=== PATIENT | female | born 1950 | race Hispanic/Latino ===

== ENCOUNTER 2018-03-08 18:03 | Emergency (ER) | payer MEDICARE ==
[2018-03-08] MEDS ORDERED: ASPIRIN PO ONE (18:32)
[2018-03-08] MEDS ORDERED: WATER FOR INJ (PF) ONE (18:33)
[2018-03-08] MEDS ORDERED: GEODON IM ONE (18:33)
[2018-03-08] MEDS ORDERED: ATIVAN ONE (18:37)
[2018-03-08] MEDS ORDERED: HALDOL ONE (18:37)
[2018-03-08 20:14] LABS: Basophils # (Auto) 0.1 K/mm3 (0.0-0.1); Basophils % (Auto) 0.6 % (0.0-1.8); Eosinophils # (Auto) 0.1 K/mm3 (0.0-0.4); Hematocrit 41.4 % (30.3-42.9); Hemoglobin 13.8 gm/dl (10.1-14.3); Lymphocytes # (Auto) 2.3 K/mm3 (1.2-5.4); Lymphocytes % (Auto) 23.2 % (13.4-35.0); Mean Corpuscular HGB Conc 33 % (30-34); Mean Corpuscular Hemoglobin 30 pg (28-32); Mean Corpuscular Volume 90 fl (79-97); Monocytes # (Auto) 0.7 K/mm3 (0.0-0.8); Monocytes % (Auto) 6.7 % (0.0-7.3); Platelet Count 331 K/mm3 (140-440); Red Blood Count 4.61 M/mm3 (3.65-5.03); Red Cell Distribution Width 14.1 % (13.2-15.2)
[2018-03-08 21:09] LABS: BUN/Creatinine Ratio 22; Blood Urea Nitrogen 22 mg/dL (7-17); Calcium 9.5 mg/dL (8.4-10.2); Hemolysis Index 12
--- NOTE | 2018-03-09 01:35 | Emergency Department Report ---
ED Chest Pain HPI - General Chief Complaint: Chest Pain Stated Complaint: CHEST PAIN Time Seen by Provider: 03/09/18 01:23 Source: patient, family, RN notes reviewed Mode of arrival: Wheelchair Limitations: No Limitations - History of Present Illness Initial Comments: This is a 67-year-old female who is not known to this provider previously. She does not recall the name of her primary care doctor. She has a past history of diabetes and hypertension. She presents to the ER with resolved chest pain. The chest pain started yesterday. It started while she was mopping. The chest pain was epigastric and in the bilateral inferior thoracic regions. It may radiate to her back, she is not sure. She endorses shortness of breath but no nausea, vomiting or diaphoresis. Her symptoms are now resolved. The patient denies DVT, pulmonary embolus risk factors. She denies recent cocaine use. No recent cardiac risk stratification that she is aware of. MD Complaint: chest pain -: Sudden Onset: during exertion Pain Location: left chest, right chest, epigastric Pain Radiation: back Severity: moderate Quality: aching Consistency: now resolved Improves With: nothing Worsens With: nothing re: dyspnea. denies: nausea, vomting, diaphoresis, sense of impending doom Treatments Prior to Arrival: aspirin Aspirin use within the Past 7 Days: (0) No - Related Data On Oral Contraceptives: No Allergies Allergy/AdvReac Type Severity Reaction Status Date / Time Sulfa (Sulfonamide Allergy Rash Verified 03/08/18 18:31 Antibiotics) Heart Score - HEART Score History: Moderately suspicious EKG: Non-specific Age: 45-65 Risk factors: 1-2 risk factors Troponin: < normal limit HEART Score: 4 - Critical Actions Critical Actions: 4-6 pts:12-16.6% risk of adverse cardiac event. Should be admitted ED Review of Systems ROS: Stated complaint: CHEST PAIN Other details as noted in HPI Comment: All other systems reviewed and negative ED Past Medical Hx - Past Medical History Hx Hypertension: Yes Hx Diabetes: Yes - Surgical History Past Surgical History?: No - Social History Smoking Status: Never Smoker Substance Use Type: None ED Physical Exam - General Limitations: No Limitations General appearance: alert, in no apparent distress - Head Head exam: Present: atraumatic, normocephalic - Eye Eye exam: Present: normal appearance, EOMI. Absent: nystagmus - ENT ENT exam: Present: normal exam, normal orophraynx, mucous membranes moist, normal external ear exam - Neck Neck exam: Present: normal inspection, full ROM. Absent: tenderness, meningismus - Respiratory Respiratory exam: Present: normal lung sounds bilaterally. Absent: respiratory distress - Cardiovascular Cardiovascular Exam: Present: regular rate, normal rhythm, normal heart sounds. Absent: systolic murmur, diastolic murmur, rubs, gallop - GI/Abdominal GI/Abdominal exam: Present: soft. Absent: distended, tenderness, guarding, rebound, rigid, pulsatile mass - Extremities Exam Extremities exam: Present: normal inspection, full ROM, normal capillary refill , other (2+ pulses noted in the bilateral upper, lower extremities. Compartments soft. No long bony tenderness. The pelvis is stable.). Absent: tenderness, pedal edema, joint swelling, calf tenderness - Back Exam Back exam: Present: normal inspection, full ROM. Absent: tenderness, CVA tenderness (R), paraspinal tenderness, vertebral tenderness - Neurological Exam Neurological exam: Present: alert, oriented X3, CN II-XII intact, normal gait, other (Extraocular movements intact. Tongue midline. No facial droop. Facial sensation intact to light touch in the V1, V2, V3 distribution bilaterally. 5 and 5 strength in 4 extremities.. Sensation is intact to light touch in 4 extremities.). Absent: motor sensory deficit - Psychiatric Psychiatric exam: Present: anxious - Skin Skin exam: Present: warm, dry, intact, normal color. Absent: rash ED Course Vital Signs 03/08/18 03/09/18 18:27 01:40 Temperature 98.5 F Pulse Rate 93 H Respiratory 18 Rate Blood Pressure 144/78 O2 Sat by Pulse 96 98 Oximetry - Reevaluation(s) Reevaluation #1: 03/09/18 04:04 The Hospital physician, Dr. Mccabe accepted the patient to the medical service on behalf of Dr. Strange SERG score - Serg Score Age > 65: (0) No Aspirin use within the Past 7 Days: (1) Yes 3 or more CAD Risk Factors: (0) No 2 or more Angina events in past 24 hrs: (0) No Known CAD with more than 50% Stenosis: (0) No Elevated Cardiac Markers: (0) No ST Deviation Greater than 0.5mm: (0) No SERG Score: 1 ED Medical Decision Making - Lab Data Result diagrams: 03/08/18 19:56 03/08/18 19:56 Vital Signs 03/08/18 18:27 Temperature 98.5 F Pulse Rate 93 H Blood Pressure 144/78 O2 Sat by Pulse 96 Oximetry Lab Results 03/08/18 03/08/18 03/08/18 Range/Units 19:56 19:56 21:34 WBC 9.8 (4.5-11.0) K/mm3 RBC 4.61 (3.65-5.03) M/mm3 Hgb 13.8 (10.1-14.3) gm/dl Hct 41.4 (30.3-42.9) % MCV 90 (79-97) fl MCH 30 (28-32) pg MCHC 33 (30-34) % RDW 14.1 (13.2-15.2) % Plt Count 331 (140-440) K/mm3 Lymph % (Auto) 23.2 (13.4-35.0) % Limestone % (Auto) 6.7 (0.0-7.3) % Eos % (Auto) 1.0 (0.0-4.3) % Baso % (Auto) 0.6 (0.0-1.8) % Lymph # 2.3 (1.2-5.4) K/mm3 Limestone # 0.7 (0.0-0.8) K/mm3 Eos # 0.1 (0.0-0.4) K/mm3 Baso # 0.1 (0.0-0.1) K/mm3 Seg Neutrophils % 68.5 (40.0-70.0) % Seg Neutrophils # 6.7 (1.8-7.7) K/mm3 Sodium 140 (137-145) mmol/L Potassium 3.7 (3.6-5.0) mmol/L Chloride 99.0 (98-107) mmol/L Carbon Dioxide 28 (22-30) mmol/L Anion Gap 17 mmol/L BUN 22 H (7-17) mg/dL Creatinine 1.0 (0.7-1.2) mg/dL Estimated GFR 56 ml/min BUN/Creatinine Ratio 22 % Glucose 110 H (65-100) mg/dL Calcium 9.5 (8.4-10.2) mg/dL Troponin T < 0.010 < 0.010 (0.00-0.029) ng/mL 03/09/18 Range/Units 00:18 WBC (4.5-11.0) K/mm3 RBC (3.65-5.03) M/mm3 Hgb (10.1-14.3) gm/dl Hct (30.3-42.9) % MCV (79-97) fl MCH (28-32) pg MCHC (30-34) % RDW (13.2-15.2) % Plt Count (140-440) K/mm3 Lymph % (Auto) (13.4-35.0) % Limestone % (Auto) (0.0-7.3) % Eos % (Auto) (0.0-4.3) % Baso % (Auto) (0.0-1.8) % Lymph # (1.2-5.4) K/mm3 Limestone # (0.0-0.8) K/mm3 Eos # (0.0-0.4) K/mm3 Baso # (0.0-0.1) K/mm3 Seg Neutrophils % (40.0-70.0) % Seg Neutrophils # (1.8-7.7) K/mm3 Sodium (137-145) mmol/L Potassium (3.6-5.0) mmol/L Chloride (98-107) mmol/L Carbon Dioxide (22-30) mmol/L Anion Gap mmol/L BUN (7-17) mg/dL Creatinine (0.7-1.2) mg/dL Estimated GFR ml/min BUN/Creatinine Ratio % Glucose (65-100) mg/dL Calcium (8.4-10.2) mg/dL Troponin T < 0.010 (0.00-0.029) ng/mL - EKG Data -: EKG Interpreted by Me - EKG Data 03/09/18 02:09 EKG #1 demonstrates bradycardia, 80 bpm, left axis deviation, left ventricular hypertrophy, poor R-wave progression, normal intervals, abnormal EKG. Not a STEMI. EKG #2 demonstrates bradycardia, resolution of left axis deviation, resolution of left ventricular hypertrophy, persistent poor R-wave progression, abnormal EKG, nonspecific changes have taken place. - Radiology Data Radiology results: image reviewed interpreted by me: X-ray the chest, interpreted by me, no acute disease - Medical Decision Making Differential diagnosis, including but not limited to: Acute coronary syndrome, pneumonia, GERD, gastritis, hiatal hernia, pericarditis, myocarditis, pulmonary embolus Assessment and plan: 67-year-old female, moderate risk by the heart score, with somewhat atypical chest pain, now resolved, abnormal EKG, with repeat EKG demonstrated nonspecific changes, with no pulmonary embolus or DVT risk factors and low risk by well's criteria. The patient is afebrile at this point in time , and appears quite comfortable and is talking to her family and looks to be in no acute distress. However given presence of vascular risk factors, EKG changes , typical historical elements including exertional chest pain and shortness of breath, I have recommended admission to the hospital for cardiac risk stratification d-dimer is pending at this time. Critical care attestation.: If time is entered above; I have spent that time in minutes in the direct care of this critically ill patient, excluding procedure time. ED Disposition Clinical Impression: Chest pain, Abnormal EKG Disposition: OP ADMIT IP TO THIS HOSP Is pt being admited?: Yes Does the pt Need Aspirin: Yes Condition: Good Instructions: Chest Pain (ED) Referrals: PRIMARY CARE, [Primary Care Provider] - 3-5 Days
--- NOTE | 2018-03-09 02:59 | XRay Report ---
FINAL REPORT EXAM: XR CHEST ROUTINE 2V HISTORY: cp dyspnea TECHNIQUE: 2 views of the chest. PRIORS: None. FINDINGS: The cardiomediastinal silhouette appears normal. The lungs are clear. The bones and soft tissues are unremarkable. IMPRESSION: No evidence of acute cardiopulmonary disease
[2018-03-09] MEDS ORDERED: LEXISCAN IV ONE ×2 (08:29→08:38)
[2018-03-09] MEDS ORDERED: MORPHINE IV PRN (08:40)
[2018-03-09] MEDS ORDERED: ZOFRAN IV PRN (08:40)
[2018-03-09] MEDS ORDERED: TYLENOL PO PRN (08:40)
[2018-03-09] MEDS ORDERED: PERCOCET 5/325 PO PRN (08:40)
[2018-03-09] MEDS ORDERED: SODIUM CHLORIDE FLUSH SYRINGE 10 ML IV PRN (08:40)
[2018-03-09] MEDS ORDERED: SODIUM CHLORIDE FLUSH SYRINGE 10 ML IV SCH (10:00)
[2018-03-09] MEDS ORDERED: PEPCID IV SCH (10:00)
[2018-03-09] MEDS ORDERED: ZESTRIL PO SCH (10:00)
[2018-03-09] MEDS ORDERED: SYNTHROID PO SCH (10:00)
[2018-03-09] MEDS ORDERED: LASIX PO SCH (10:00)
[2018-03-09] MEDS ORDERED: HumaLOG SUB-Q SCH (11:30)
[2018-03-09 13:31] VITALS: BP 124/69
--- NOTE | 2018-03-09 13:45 | Discharge Summary ---
Providers - Providers Date of Admission: 03/09/18 04:04 Date of discharge: 03/09/18 Attending physician: LORE OLGUIN MD Primary care physician: RODRIGO ISRAEL MD Hospitalization Condition: Good Hospital course: pateint admitted for chest pain.MPI and Serial cardiac enzymes negastive See dictated Discharge summary Disposition: DC-01 TO HOME OR SELFCARE Time spent for discharge: 30 min Core Measure Documentation - Palliative Care Palliative Care/ Comfort Measures: Not Applicable - Core Measures Any of the following diagnoses?: none Exam - Constitutional Vitals: Temp Pulse Resp BP Pulse Ox 98.5 F 95 H 18 124/69 97 03/08/18 18:27 03/09/18 13:27 03/09/18 01:40 03/09/18 13:27 03/09/18 06:00 General appearance: Present: no acute distress, well-nourished - EENT Eyes: Present: PERRL ENT: hearing intact, clear oral mucosa - Neck Neck: Present: supple, normal ROM - Respiratory Respiratory effort: normal Respiratory: bilateral: CTA - Cardiovascular Heart Sounds: Present: S1 & S2. Absent: rub, click - Extremities Extremities: pulses symmetrical, No edema Peripheral Pulses: within normal limits - Abdominal General gastrointestinal: Present: soft, non-tender, non-distended, normal bowel sounds Female genitourinary: Present: normal - Integumentary Integumentary: Present: clear, warm, dry - Musculoskeletal Musculoskeletal: gait normal, strength equal bilaterally - Psychiatric Psychiatric: appropriate mood/affect, intact judgment & insight - Neurologic Neurologic: CNII-XII intact, moves all extremities Plan Activity: no restrictions Follow up with: PRIMARY CAREMD [Primary Care Provider] - 3-5 Days Prescriptions: Potassium Chloride [K-Dur] 20 meq PO QDAY #30 tablet
--- NOTE | 2018-03-09 13:45 | Event Note ---
Date: 03/09/18 See dictated H/p in reports
[2018-03-09] MEDS ORDERED: GLUCOPHAGE PO SCH (17:00)
--- NOTE | 2018-03-09 21:47 | Treadmill Report ---
MYOCARDIAL PERFUSION IMAGING REPORT IV Lexiscan nuclear imaging being performed for evaluation of chest pain. Baseline EKG showed sinus bradycardia, otherwise, unremarkable. The patient received 0.4 mg of IV Lexiscan without any significant side effects. No EKG changes are noted to suggest ischemia. No arrhythmia noted. The patient had resting myocardial perfusion images using technetium pyrophosphate scanning. Subsequently, after vasodilation with IV Lexiscan, the patient had post vasodilation perfusion images scans performed. The patient tolerated the procedure well. Following findings were noted. TID was noted to be 1.20. Post-stress left ventricular systolic function was calculated to be 79% with normal size left ventricle with normal wall thickening. Perfusion images post vasodilation and during this showed normal perfusion. FINAL IMPRESSION: 1. The patient tolerated IV Lexiscan well. 2. No evidence of ischemia on the EKG. 3. Normal perfusion images with no evidence of ischemia. Normal left ventricular systolic function and wall motion noted with calculated ejection fraction of 79%. JOB# [id number] EARLINE/KENDAL
[2018-03-09] MEDS ORDERED: PRAVACHOL PO SCH (22:00)
[2018-03-09] MEDS ORDERED: NON-FORMULARY (Simvastatin [Simvastatin] 40 MG) PO SCH (22:00)
--- NOTE | 2018-03-09 22:42 | Discharge Summary ---
HOSPITAL COURSE: The patient admitted for chest pain. Chest pain workup was done in the hospital. Serial cardiac enzymes and Lexiscan were negative. The patient also has hypertension, diabetes, hyperlipidemia and hypothyroidism. The patient was discharged on her home medications. Potassium was added. Because the patient was not on potassium in spite of being on Lasix. ____ were normal. DISCHARGE DIAGNOSES: 1. Atypical chest pain. Possible gastroesophageal reflux disease. 2. Hypertension. 3. Hyperlipidemia. 4. Type 2 diabetes. 5. Hypothyroidism. Follow up with primary care physician and Cardiology. JOB# [id number] KATHERINE/KENDAL
--- NOTE | 2018-03-09 23:03 | History and Physical Report ---
CHIEF COMPLAINT: Chest pain for 2 days. HISTORY OF PRESENT ILLNESS: A 67-year-old female with history of hypertension and diabetes, comes in for chest pain since yesterday. Chest pain at this time happens while exertion. The patient was on morphine. Pain was epigastric and retrosternal. No radiation. Some shortness of breath present. No diaphoresis. No nausea, no vomiting. No palpitations. Exertion is a precipitating factor. No relieving factor. Rest is a relieving factor. No fever or chills. No recent travel. PAST MEDICAL HISTORY: Past medical history is significant for hypertension and diabetes. PAST SURGICAL HISTORY: None. SOCIAL HISTORY: She does not smoke. The patient is a full code. FAMILY HISTORY: Hypertension. REVIEW OF SYSTEMS: Review of systems is significant for chest pain. Otherwise, review of systems is negative. PHYSICAL EXAMINATION: GENERAL: On examination, an elderly female, cooperative during examination, cheerful. VITAL SIGNS: Blood pressure is 96/60, which has improved to 124/69, temperature is 98, pulse is 96, respirations are 16. HEENT: Unremarkable. Pupils equal and reactive. NECK: Supple, no lymphadenopathy, no thyromegaly. LUNGS: Are clear to auscultation and percussion. CARDIOVASCULAR: S1, S2 heard. No gallop, no murmur, no rub. Apical impulse in left fifth intercostal space and midclavicular line. ABDOMEN: Soft and benign. No hepatosplenomegaly. No guarding, no rigidity. Hernial orifices are normal. EXTREMITIES: Good pedal pulses. CENTRAL NERVOUS SYSTEM: Alert and oriented x 4, nonfocal examination. LABORATORY AND IMAGING STUDIES: Labs are significant for normal CBC, normal electrolytes, creatinine is 1.0. Glucose is slightly high at 110, hemoglobin A1c at 6.1. Troponins are less than 0.10. EKG shows normal sinus rhythm, no acute ST-T wave changes, the heart rate of 76. ASSESSMENT AND PLAN: 1. Chest pain, rule out myocardial infarction, chest pain protocol. The patient to get Lexiscan. Her serial cardiac enzymes are negative. 2. Hypertension. Continue lisinopril. 3. Congestive heart failure. Continue Lasix 40 mg once a day. The patient is not on potassium, potassium 20 mEq added. The patient counseled about it. 4. Hyperlipidemia. Continue simvastatin 40 mg daily. 5. Type 2 diabetes. Continue metformin and coverage. Hemoglobin A1c is 6.1, well controlled. 6. Hypothyroidism. Continue levothyroxine. 7. Deep venous thrombosis prophylaxis. Lovenox 40 mg subcutaneous daily. JOB# [id number] VSM/NTS
== END 2018-03-09 14:22 | disposition home or self-care (01) ==
LOC: ED 18:03 → 4A 03-09 04:04 → UNDOADMIN 03-09 04:04
DX: R94.31 Abnormal electrocardiogram [ECG] [EKG] (principal); R07.89 Other chest pain; I10 Essential (primary) hypertension; E11.9 Type 2 diabetes mellitus without complications; Z88.2 Allergy status to sulfonamides
CPT/HCPCS: 36415; 71046; 78452; 80048; 82962; 83036; 84484; 85025; 85379; 93005; 93010; 93017; 99285; A9502; J2785; J1630; J2060; J3486

== ENCOUNTER 2019-01-06 16:35 | Emergency (ER) | payer MEDICARE ==
--- NOTE | 2019-01-06 17:13 | Emergency Department Report ---
Blank Doc - Documentation Documentation: This is a 68-year-old female that presents with HTN and heart fluttering sensa tion. This initial assessment/diagnostic orders/clinical plan/treatment(s) is/are subject to change based on patient's health status, clinical progression and re- assessment by fellow clinical providers in the ED. Further treatment and workup at subsequent clinical providers discretion. Patient/guardians urged not to elope from the ED as their condition may be serious if not clinically assessed and managed. Initial orders include: 1- Patient sent to MAIN ED for further evaluation and treatment 2- labs 3- EKG
--- NOTE | 2019-01-06 18:02 | XRay Report ---
CHEST 2 VIEWS INDICATION / CLINICAL INFORMATION: Chest Pain. Dizziness, congestion and high blood pressure. COMPARISON: None available. FINDINGS: SUPPORT DEVICES: None. HEART / MEDIASTINUM: The heart size and pulmonary vasculature are normal. The aorta is normal in floyd mackenzie. LUNGS / PLEURA: No significant pulmonary or pleural abnormality. No pneumothorax. ADDITIONAL FINDINGS: No significant additional findings. IMPRESSION: No acute findings. Signer Name: Clovis Ross MD Signed: 01/06/2019 5:57 PM Workstation Name: [id number]
[2019-01-06 18:20] LABS: Basophils # (Auto) 0.1 K/mm3 (0.0-0.1); Basophils % (Auto) 0.8 % (0.0-1.8); Eosinophils # (Auto) 0.2 K/mm3 (0.0-0.4); Eosinophils % (Auto) 2.1 % (0.0-4.3); Hematocrit 41.9 % (30.3-42.9); Hemoglobin 14.3 gm/dl (10.1-14.3); Lymphocytes # (Auto) 2.4 K/mm3 (1.2-5.4); Lymphocytes % (Auto) 32.2 % (13.4-35.0); Mean Corpuscular HGB Conc 34 % (30-34); Mean Corpuscular Volume 92 fl (79-97); Monocytes # (Auto) 0.6 K/mm3 (0.0-0.8); Monocytes % (Auto) 7.6 % (0.0-7.3); Platelet Count 381 K/mm3 (140-440); Red Blood Count 4.57 M/mm3 (3.65-5.03); Red Cell Distribution Width 15.8 % (13.2-15.2)
[2019-01-06 18:30] LABS: INR 0.99 (0.87-1.13)
[2019-01-06 18:42] LABS: BUN/Creatinine Ratio 18; Blood Urea Nitrogen 14 mg/dL (7-17); Calcium 9.5 mg/dL (8.4-10.2); Hemolysis Index 11
[2019-01-06 19:49] VITALS: BP 148/79
--- NOTE | 2019-01-06 20:29 | Emergency Department Report ---
ED General Adult HPI - General Chief complaint: High BP Stated complaint: HBP Time Seen by Provider: 01/06/19 17:12 Source: patient Mode of arrival: Ambulatory Limitations: No Limitations - History of Present Illness Initial comments: Patient is 68-year-old female with history of hypertension and diabetes. Patient presented to the ER stating that her blood pressure was high today at home she stated that he was 168/98. Patient also stated that she experienced palpitation for a few seconds. Patient denied any chest pain, shortness of breath, nausea or vomiting. Patient also denied any weakness numbness or tingling sensation. - Related Data Home Medications Medication Instructions Recorded Confirmed Last Taken Furosemide [Lasix TAB] 40 mg PO QDAY 03/09/18 03/09/18 Unknown Levothyroxine [Synthroid] 75 mcg PO QAM 03/09/18 03/09/18 Unknown Lisinopril [Prinivil] 10 mg PO QDAY 03/09/18 03/09/18 Unknown Metformin HCl 1,000 mg PO QDAY 03/09/18 03/09/18 Unknown Simvastatin 40 mg PO QHS 03/09/18 03/09/18 Unknown Previous Rx's Medication Instructions Recorded Last Taken Type Potassium Chloride [K-Dur] 20 meq PO QDAY #30 tablet 03/09/18 Unknown Rx Allergies Allergy/AdvReac Type Severity Reaction Status Date / Time Sulfa (Sulfonamide Allergy Rash Verified 03/08/18 18:31 Antibiotics) ED Review of Systems ROS: Stated complaint: HBP Other details as noted in HPI Comment: All other systems reviewed and negative Constitutional: denies: chills, fever Respiratory: denies: cough, orthopnea, shortness of breath, SOB with exertion, SOB at rest Cardiovascular: palpitations. denies: chest pain Gastrointestinal: denies: abdominal pain, nausea, vomiting, diarrhea, constipation, hematemesis Musculoskeletal: denies: back pain Neurological: denies: headache, weakness, numbness, paresthesias, confusion, abnormal gait ED Past Medical Hx - Past Medical History Previous Medical History?: Yes Hx Hypertension: Yes Hx Diabetes: Yes - Surgical History Past Surgical History?: No - Social History Smoking Status: Current Every Day Smoker - Medications Home Medications: Home Medications Medication Instructions Recorded Confirmed Last Taken Type Furosemide [Lasix TAB] 40 mg PO QDAY 03/09/18 03/09/18 Unknown History Levothyroxine [Synthroid] 75 mcg PO QAM 03/09/18 03/09/18 Unknown History Lisinopril [Prinivil] 10 mg PO QDAY 03/09/18 03/09/18 Unknown History Metformin HCl 1,000 mg PO QDAY 03/09/18 03/09/18 Unknown History Potassium Chloride [K-Dur] 20 meq PO QDAY #30 tablet 03/09/18 Unknown Rx Simvastatin 40 mg PO QHS 03/09/18 03/09/18 Unknown History ED Physical Exam - General Limitations: No Limitations General appearance: alert, in no apparent distress - Head Head exam: Present: atraumatic, normocephalic, normal inspection - Eye Eye exam: Present: normal appearance, PERRL - ENT ENT exam: Present: normal exam, mucous membranes moist - Neck Neck exam: Present: normal inspection, full ROM. Absent: tenderness, meningismus, lymphadenopathy, thyromegaly - Respiratory Respiratory exam: Present: normal lung sounds bilaterally - Cardiovascular Cardiovascular Exam: Present: regular rate, normal rhythm, normal heart sounds - GI/Abdominal GI/Abdominal exam: Present: soft, normal bowel sounds. Absent: distended, tenderness, guarding, rebound, rigid, organomegaly, mass, bruit, pulsatile mass, hernia - Extremities Exam Extremities exam: Present: normal inspection, full ROM, normal capillary refill - Back Exam Back exam: Present: normal inspection, full ROM. Absent: CVA tenderness (R), CVA tenderness (L), muscle spasm, paraspinal tenderness, vertebral tenderness - Neurological Exam Neurological exam: Present: alert, oriented X3, CN II-XII intact, normal gait, reflexes normal - Psychiatric Psychiatric exam: Present: normal mood - Skin Skin exam: Present: warm, intact, normal color ED Course Vital Signs 01/06/19 01/06/19 19:46 20:37 Temperature 98 F Pulse Rate 66 Respiratory 20 20 Rate Blood Pressure 148/79 O2 Sat by Pulse 100 Oximetry ED Medical Decision Making - Lab Data Result diagrams: 01/06/19 17:57 01/06/19 17:57 - EKG Data -: EKG Interpreted by Mi EKG shows normal: sinus rhythm Rate: normal - EKG Data Interpretation: no acute changes - Radiology Data Radiology results: report reviewed Chest x-ray is unremarkable. - Medical Decision Making Patient is 68-year-old female with history of hypertension and diabetes. Patient presented to the ER stating that her blood pressure was high today at home she stated that he was 168/98. Patient also stated that she experienced palpitation for a few seconds. Patient denied any chest pain, shortness of breath, nausea or vomiting. Patient also denied any weakness numbness or tingl ing sensation. Patient remained asymptomatic in the ER. Blood pressure is 124/74. EKG is unremarkable. Labs reviewed that is unremarkable including a negative troponin. The patient will be discharged home to follow-up with her primary care physician in the next 2-3 days and advised to return to the ER if she developed any new symptoms. Critical care attestation.: If time is entered above; I have spent that time in minutes in the direct care of this critically ill patient, excluding procedure time. ED Disposition Clinical Impression: Malignant hypertension, Palpitation Disposition: DC-01 TO HOME OR SELFCARE Is pt being admited?: No Condition: Stable Instructions: Hypertension (ED), Palpitations (ED) Referrals: PRIMARY CARE, [Primary Care Provider] - 3-5 Days
== END 2019-01-06 21:28 | disposition home or self-care (01) ==
LOC: ED 16:35
DX: I10 Essential (primary) hypertension (principal); R00.2 Palpitations; E11.9 Type 2 diabetes mellitus without complications; F17.200 Nicotine dependence, unspecified, uncomplicated; Z79.899 Other long term (current) drug therapy; Z88.2 Allergy status to sulfonamides
CPT/HCPCS: 36415; 71046; 80048; 84484; 85025; 85610; 85730; 93005; 93010; 99284